=== PATIENT | female | born 1975 | race Caucasian/White ===

== ENCOUNTER 2017-02-14 14:13 | Emergency (ER) | payer BC ==
[~2017-02-14] VITALS: Ht 165.1 cm; Wt 113.4 kg
[~2017-02-14 14:13] MED LIST: AUGMENTIN1 TA2 PO; FLEXERIL10 MG PO; GLIMEPIRIDE 4MG4 MG PO; LORTAB 5/500 501 TAB PO; METFORMIN 500M500 MG PO; MULTI VITAMINS1 TA1 PO; NOVOLIN 70/30 710 ML SC; ONGLYZA2.5 MG PO; PERCOCET 5/3251 EACH PO; PHENERGAN 25MG.25 M1 PO; ZYRTEC10 M2 PO
--- NOTE | 2017-02-14 14:45 | Urgent Treatment Center Report ---
History of Present Issue Date/Time Seen by Provider 02/14/17 1440 Visit Reason Pt arrived:Walked Presenting Problem:PT STATES MISSING A STEP LAST NIGHT AROUND 2029 AND FALLING AND LANDING ON L SHOULDER. TODAY PT IS HAVING L SHOULDER AND NECK PAIN Location if Accident:Home Onset of symptoms date/time:02/13/1704/21/2030 or onset unknown for: Have you (or family members/close friends) recently traveled outside the [place]? N If Yes, where/when: Have you had exposure to infectious disease within the past month? TB? Other? Specify: c/o left anterior shoulder/clavicle pain s/p fall yesterday evening. Missed bottom wood step outside and fell sideways onto left side on ground. Reports nearby concrete pavers that scratched left calf. Not sure how she fell exactly but knows left shoulder pain soon after falling. Isn't sure if arms was stretched out or down to side. Advil last night helped. Hasn't taken or tried anything for pain today. Pain currently 5-6/10. Throbbing. Full ROM shoulder last night but "it just hurts too bad today" to more it much. Full ROM left wrist and elbow but left shoulder "starts to ache" with left elbow ROM. Denies N /T or weakness. Worried about clavicular fracture. Source patient Exam Limitations no limitations ALLERGIES Coded Allergies: latex (02/14/17) Home Medications Reported Medications METFORMIN HCL (Metformin 500MG) 1,000 MG PO BID MULTIVITAMIN (One Daily Multivitamin) 1 TAB PO DAILY CETIRIZINE HCL (Zyrtec) 10 MG PO DAILY History Medical History General CAD? No Angina: No OK: No Hypertension? No Hyperlipidemia? No CHF? No DVT? No PE? No COPD? No Asthma? No Anemia? No GERD? No Gastric ulcers? No GI Bleed? No Hernia? No Thyroid Problems? No Hypothyroidism? No CVA? No Seizures? No Diabetes? Yes Insulin Dependent: Yes Insulin Pump: No Home FSBS? Yes Renal Insuffiency? No UTI? Yes Stones? Yes GB Disease: Yes Nephritic Syndrome? No Asplenia? No Hepatitis? No Sickle Cell Disease? No Arthritis? No Migraines? No Cataracts? No Glaucoma? No MRSA? No HIV? No TB? No Anxiety? Yes Depression? Yes Cancer? No Immunization HX DT/Tetanus 1-4 Years Ago Flu NOT SURE Pneumonia NEVER Surgical Hx Previous Surgery?Y TUBES IN EARS TONSILLECTOMY GALLBLADDER [employer] Hx LMP 1-6 Days Ago Family History Family HX Diabetes Yes CAD No Hypertension No Hyperlipidemia No Cancer Yes TB No Social History Smoking Hx Smoker: Never Smoker Tobacco: No Alcohol Alcohol: No Review of Systems All Other Systems Reviewed and Negative Constitutional see HPI, denies fever, denies malaise Musculoskeletal see HPI, denies back pain, denies other (no head,hip,knee,leg pain) Skin change in color (bruising left calf), lesions (abrasion left calf) Psychiatric/Neurological see HPI Physical Exam Vital Signs Vital Signs Date Time Temp Pulse Resp B/P Pulse O2 O2 Flow FiO2 Ox Delivery Rate 02/14 1457 20 02/14 1426 98.9 100 20 151/82 96 General Appearance mild distress (guarding left UE,elbow 90 degr) Respiratory Status Yes: chest symmetrical. No: respiratory distress, use of accessory muscles. Cardiovascular no peripheral edema Peripheral Pulses Pulses normal Yes (radial) Back gait normal Extremities normal range of motion (left elbow, wrist, digits), limited range of motion (left shoulder all directions), left anterior shoulder tenderness Strength 5 Upper Ext (L), 5 Upper Ext (R) Neurologic alert, no motor/sensory deficits, oriented x 3 Skin warm/dry, abrasions (left proximal lateral LL), bruising (left lateral proximal LL) Medical Decision Making LABS/Meds/Orders Pt receiving controlled substance in ED? No Results/Orders Current Medication Orders Sig/Pema Start time Last Medication Dose Route Stop Time Status Admin Ketorolac 60 MG ONCE ONE 02/14 1500 DC 02/14 Tromethamine IM 02/14 1501 1457 Ketorolac 0 .STK-MED ONE 02/14 1455 DC Tromethamine .ROUTE Orders Procedure Date/time Status STABILIZE JOINT 02/14 1529 Active XRAY/CT/US XRAY/CT/US XRAY shoulder XR interpretation by reviewed by me (w/ Dr. Hammer, [facility]) Xray Results no acute finding Comment Dr. Hammer came to clinic to examine pt himself, very mild tenderness left side posterior neck w/ deep palpation. Full neck ROM without pain. Dr. Hammer suggested c spine xrays but pt declined. Reports she typically has neck pain, this is nothing new and she sees a chiropractor for it occasionally. Only new pain was shoulder, which has improved with toradol and pt is relieved xray was normal. Departure Departure Time of Disposition 1529 Disposition DC Home or Self Care(routine) Clinical Impression Primary Impression: Sprain of left shoulder Qualifiers: Encounter type: initial encounter Shoulder sprain type: unspecified sprain Qualified Code: S43.402A - Unspecified sprain of left shoulder joint, initial encounter Secondary Impressions: Fall from steps Qualifiers: Encounter type: initial encounter Qualified Code: W10.8XXA - Fall ( on) (from) other stairs and steps, initial encounter Condition STABLE Referrals Ameya Corey MD for new or worsening symptoms OR no noticeable improvement over the next 3-5 days Patient Instructions DI for Shoulder Sprain, How To Perform RICE (Rest, Ice, Compress, Elevate), How to Use a Sling Additional Instructions * use left UE as tolerated. No movement can lead to frozen shoulder. ROM important but avoid heavy lifting, pulling, pushing * Rest * ice 15-20 mins 3-4 times a day for 48 hours followed by moist heat 15-20 minutes 3-4 times a day * Biofreeze as needed * Discussed naproxen and muscle relaxer. Pt prefers ibuprofen 800mg only at this time. * Arm sling for comfort. * Ibuprofen every 6 hours as needed for pain and inflammation. If you need something more, you can take tylenol every 4 hours as needed as long as your primary care provider has told you it is ok to take both. Discharge Counseling Counseled pt/family regarding diagnosis, test results, medications/RX, home care, follow up needs Prescriptions Current Visit Scripts Ibuprofen (Ibuprofen 800MG) 800 MG PO Q6HP PRN pain #20 TAB at 5845
--- NOTE | 2017-02-14 15:28 | RADIOLOGY REPORT PS360 ---
[id number] VIEWS HISTORY: Pain following injury FELL ON SHOULDER LAST NIGHT ORDERING PHYSICIAN: RACHAEL COOK APRN PATIENT AGE: 41 years COMPARISON: None FINDINGS: No acute fracture or dislocation. There are mild osteoarthritic changes of the acromioclavicular joint. Calcification is present along the humeral head consistent with calcific tendinitis. IMPRESSION: 1. No acute fracture. 2. Calcific tendinitis
[2017-02-14] MEDS ORDERED: IBUPROFEN800 MG PO (15:35)
[2017-02-14 15:37] VITALS: BP 151/82
== END 2017-02-14 15:39 | disposition home or self-care (01) ==
LOC: UTC 14:13
DX: S43.402A Unspecified sprain of left shoulder joint, initial encounter (principal); E11.9 Type 2 diabetes mellitus without complications; W10.8XXA Fall (on) (from) other stairs and steps, initial encounter; Y92.009 Unspecified place in unspecified non-institutional (private) residence as the place of occurrence of the external cause; Z79.84 Long term (current) use of oral hypoglycemic drugs; Z79.899 Other long term (current) drug therapy

== ENCOUNTER → 2017-05-03 | Outpatient (CLI) | payer BC ==
[~2017-05-03] MED LIST changes: +IBUPROFEN800 MG PO
--- NOTE | 2017-05-07 09:50 | RADIOLOGY REPORT PS360 ---
DIG MAMM-SCREEN [place] W/CAD CAD Screening COMPARISON: None, this is baseline INDICATION: There is no personal or family history of breast cancer. TECHNIQUE: Standard CC and MLO images were obtained. R2 CAD reviewed. FINDINGS: Scattered fibroglandular densities are seen in both breast. There are couple benign-appearing calcifications in each breast. There is no suspicious lesion and there are no suspicious microcalcifications. IMPRESSION: Fibrofatty parenchyma with no suspicious lesion seen recommend yearly follow-up BI-RADS CATEGORY: 2_Benign RECOMMENDED FOLLOWUP: 12M 12 MONTH FOLLOW-UP (A letter has been sent to the patient regarding results of the study.)
== END ==
LOC: RAD 05-01 11:00
DX: Z12.31 Encounter for screening mammogram for malignant neoplasm of breast (principal)
CPT/HCPCS: G0202